=== PATIENT | female | born 1970 ===

== ENCOUNTER 2017-01-08 09:28 | Day surgery (SDC) | payer OTHER ==
[2016-12-23 11:52] VITALS: BMI 31.6
[2017-01-08] MEDS ORDERED: Bupivacaine HCl 0.25% PF (10 ml) Inj ONE ×2 (13:39→13:40)
[2017-01-08] MEDS ORDERED: cefOXitin IV 2 gm in Dextrose 2 GM/50 ML BAG IVPB ONE (13:40)
[2017-01-08] MEDS ORDERED: Lidocaine 2% w Epi 1:100,000 Inj IJ ONE (13:40)
[2017-01-08] MEDS ORDERED: Lactated Ringer's 1,000 ML IV ONE ×2 (14:00→15:25)
[2017-01-08] MEDS ORDERED: Oxycodone/Acetaminophen 5/325 mg Tab PO PRN (16:14)
--- NOTE | 2017-01-08 16:16 | PCM.SURG1 ---
Surgeon's Initial Post Op Note - Surgeon's Notes Surgeon: Dr. Norris Mortgage Manager: Dr. Berman Type of Anesthesia: General Endo, Local Pre-Operative Diagnosis: cholecystitis Operative Findings: see operative report Post-Operative Diagnosis: same Operation Performed: laparoscopic cholecystectomy, extensive lysis of adhesions Specimen/Specimens Removed: gallbladder Estimated Blood Loss: EBL {In ML}: 10 Blood Products Given: N/A Drains Used: No Drains Post-Op Condition: Good Date of Surgery/Procedure: 01/08/17 Time of Surgery/Procedure: 16:16
[2017-01-08] MEDS ORDERED: HYDROmorphone 0.5 mg/0.5 ml ISec IVP PRN (16:19)
[2017-01-08 18:00] VITALS: BP 104/68; PULSE 90; RESP 18; TEMP 96.9; O2SAT 100
--- NOTE | 2017-01-08 21:55 | OP ---
PROCEDURE DATE: 01/08/2017 PREOPERATIVE DIAGNOSES: 1. Chronic cholecystitis and cholelithiasis. 2. Possible postoperative adhesion due to tubal ligation. POSTOPERATIVE DIAGNOSES. 1. Chronic cholecystitis and cholelithiasis. 2. Possible postoperative adhesion due to tubal ligation. PROCEDURES DONE: 1. Laparoscopic cholecystectomy. 2. Laparoscopic extensive lysis of postoperative adhesion. SURGEON: Mahesh Norris MD. ANIMAL HUSBANDRY PROFESSOR: Mary Berman, PGY-1 resident. ANESTHESIA: General endotracheal tube anesthesia. ESTIMATED BLOOD LOSS: Around 10 mL. DRAINS: None. PATHOLOGY: Gallbladder with gallstone was sent for pathology. COMPLICATIONS: None. INTRAOPERATIVE FINDINGS: The patient had changes of chronic cholecystitis and cholelithiasis. The p atient also had extensive postinfectious adhesion due to the previous tubal ligation. INTRAOPERATIVE STEPS: This 46-year-old female who was diagnosed with chronic cholecystitis and adrian lithiasis and the patient was consented for laparoscopic cholecystectomy, possible open. Brought to the OR, placed supine on the operating table. After induction of the anesthesia, abdomen was prepped and draped in a usual sterile fashion. The infraumbilical incision was made at the site of the prev ious tubal ligation incision. After incising skin and subcutaneous tissue and the fascia, the perito vickie cavity was entered. The patient found to have extensive periumbilical and upper abdominal adhes ions due to the previous tubal ligation and now the upper abdominal midline 12 mm port was placed. A nother two 5 mm ports were placed and then extensive lysis of adhesion was done to release the umbili manuel port site. After that, the gallbladder was retracted cranially. Calot's triangle dissection was done. Cystic duct and cystic artery was identified and clipped at 3 places and cut in between 2 cli ps near the gallbladder and gallbladder was dissected free from the gallbladder fossa, taken in EndoC atch bag, taken out through the umbilical port site and sent to the table for the pathology. There w as a proper hemostasis in each and every part of the procedure. All the ports were taken out under v ision. Pneumo was deflated. Umbilical port site was closed in 2 layers, the fascia with 0 Vicryl in terrupted sutures, skin with a 4-0 Monocryl and dry sterile dressing was applied. The patient tolera corinna the procedure well. Count of instruments and gauze was correct. Mahesh Norris MD cc: [id number] TT: 01/08/2017 21:55:10 mn
== END 2017-01-08 18:30 | disposition home or self-care (01) ==
LOC: C.SDS 09:28
PROVIDERS: ATTEND Surgery Surgical Critical Care
DX: K80.10 Calculus of gallbladder with chronic cholecystitis without obstruction (principal); K82.8 Other specified diseases of gallbladder
CPT/HCPCS: 47562; 88304; C1713; J0694; J7120

== ENCOUNTER 2018-10-21 09:16 | Outpatient (CLI) | payer OTHER | END 2018-10-21 09:17 | disposition home or self-care (01) | LOC: C.LAB 09:16 | DX: M71.1 Other infective bursitis (principal); R73.01 Impaired fasting glucose; R31.9 Hematuria, unspecified; R30.0 Dysuria; E78.00 Pure hypercholesterolemia, unspecified; I10 Essential (primary) hypertension ==

== ENCOUNTER 2018-10-27 09:34 | Outpatient (CLI) | payer OTHER | END 2018-10-27 09:35 | disposition home or self-care (01) | LOC: C.CTH 09:34 | DX: R31.9 Hematuria, unspecified (principal) ==

== ENCOUNTER 2018-10-28 04:14 | Emergency (ER) | payer OTHER ==
[2018-10-28 04:14] VITALS: BMI 31.6
[2018-10-28 04:39] VITALS: BP 114/80; PULSE 69; RESP 18; TEMP 97.7; O2SAT 100
[2018-10-28] MEDS ORDERED: MethylPREDNISolone 40 mg Vial IM STA (04:57)
[2018-10-28] MEDS ORDERED: MethylPREDNISolone 40 mg Vial ONE (05:09)
--- NOTE | 2018-10-28 05:15 | C.PDOC ---
History Of Present Illness 48 year old female presents to the ER with rash and throat itching that began tonight. Patient states she was here yesterday, had CT w/ IV contrast and believes she is having a reaction. She reports this is the first time she received contrast. Denies SOB, chest pain, or known allergies. Time Seen by Provider: 10/28/18 04:38 Chief Complaint (Nursing): Allergic Reaction History Per: Patient History/Exam Limitations: no limitations Onset/Duration Of Symptoms: Hrs Current Symptoms Are (Timing): Still Present Possible Cause: Other (Contrast) Home/EMS Treatment: None Recent travel outside of the [place]: No Past Medical History Reviewed: Historical Data, Nursing Documentation, Vital Signs Vital Signs: Last Vital Signs Temp 97.7 F 10/28/18 04:33 Pulse 69 10/28/18 04:33 Resp 18 10/28/18 04:33 BP 114/80 10/28/18 04:33 Pulse Ox 100 10/28/18 04:33 - Medical History PMH: No Chronic Diseases, [place]'s Disease, Gall Bladder Disease Surgical History: No Surg Hx, Appendectomy, Cholecystectomy Family History: States: Unknown Family Hx - Social History Hx Alcohol Use: No Hx Substance Use: No - Immunization History Hx Tetanus Toxoid Vaccination: No Hx Influenza Vaccination: No Hx Pneumococcal Vaccination: No Review Of Systems Constitutional: Negative for: Fever, Chills ENT: Positive for: Other (Throat tightness). Negative for: Mouth Swelling Cardiovascular: Negative for: Chest Pain Respiratory: Negative for: Shortness of Breath Skin: Positive for: Rash Physical Exam - Physical Exam Appears: Non-toxic Skin: Warm, Dry, Rash (Diffuse urticaria) Head: Atraumatic, Normacephalic Eye(s): bilateral: Normal Inspection Ear(s): Bilateral: Normal Oral Mucosa: Moist Tongue: Normal Appearing, No Swelling Lips: Normal Appearing, No Swelling Throat: Normal, No Erythema, No Exudate, No Other (Swelling) Neck: Normal, No Paracervical Tenderness, Step Off Deformity, Supple, No Other (Swelling) Chest: Symmetrical, No Tenderness Cardiovascular: Rhythm Regular Respiratory: Normal Breath Sounds, No Accessory Muscle Use, No Stridor, No Wheezing Gastrointestinal/Abdominal: Soft, No Tenderness Extremity: Normal ROM, No Tenderness, No Swelling Neurological/Psych: Oriented x3, Normal Speech, Normal Motor Gait: Steady ED Course And Treatment O2 Sat by Pulse Oximetry: 100 (room air) Pulse Ox Interpretation: Normal Medical Decision Making Medical Decision Making: Solumedrol, pepcid, and benadryl administered. On reevaluation, patient is resting comfortably in no acute distress, vitals are stable, she reports improvement of symptoms, will discharge home with Rx and instructions to follow up with PMD or return if symptoms worsen. Disposition - Disposition Referrals: Toby Buckner MD [Medical Doctor] - Disposition: HOME/ ROUTINE Disposition Time: 05:41 Condition: GOOD Additional Instructions: Follow up with the medical doctor fiit fail. lReturn if worsened. 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 - Scribe Statement The provider has reviewed the documentation as recorded by the Scribe Pool Patel All medical record entries made by the Lewisibceleste were at my direction and personally dictated by me. I have reviewed the chart and agree that the record accurately reflects my personal performance of the history, physical exam, medical decision making, and the department course for this patient. I have also personally directed, reviewed, and agree with the discharge instructions and disposition.
== END 2018-10-28 05:49 | disposition home or self-care (01) ==
LOC: C.ER 04:14
DX: L50.0 Allergic urticaria (principal)
CPT/HCPCS: 96372; 99283; J2920

== ENCOUNTER 2018-11-19 10:30 | Outpatient (CLI) | payer OTHER | END 2018-11-19 10:31 | disposition home or self-care (01) | LOC: C.USIC 10:31 | DX: N83.202 Unspecified ovarian cyst, left side (principal) ==